=== PATIENT | female | born 1935 | race Caucasian/White ===

== ENCOUNTER → 2018-04-20 | Outpatient (CLI) | payer MEDICARE ==
[~2018-04-20] MED LIST: ACE3 PO; ACET500T68 PO; ALB6.7R INH; AMLO-101 PO; ATOR20TA65 PO; CALC500T6 PO; CELE-1 PO; CHOL200074 PO; CYAN100088 PO; CYAN25004 PO; IBAN150T3 PO; LACT1CAP6 PO; LOPE1LIQ49 PO; MELA1TAB23 PO; METH479P3 PO; MIRT-22 PO; MULT-27 PO; ONDA4TAB97 PO; PREG50CA48 PO; TRAM-627 PO; ZOLP-360 PO
--- NOTE | 2018-04-20 10:48 | RADIOLOGY IMAGING REPORT ---
FACILITY: [facility] - [place] PATIENT NAME: Patrice Alcazar : 1935 MR: [id number] V: [id number] EXAM DATE: ORDERING PHYSICIAN: SHIRA HORVATH TECHNOLOGIST: Location: [facility] Patient: Patrice Alcazar : 1935 Visit/Account:[id number] Date of Sevice: 04/20/2018 THORACIC SPINE 3 VIEWS, LUMBAR SPINE 4 VIEWS, CERVICAL SPINE MIN 4 VIEW Indication: Chronic pain, Comparison: C-spine MRI 12/16/2008 and MRI lumbar spine 04/30/2016 Findings: Cervical spine: There is significant multilevel degenerative disc space disease. Severe disc space narrowing is note d from C3-4 through C6-7 large anterior marginal osteophytes are noted from C4 through C6. There is effacement of the anterior prevertebral tissues secondary to the large osteophytes. There is a grade 1 retrolisthesis of C4 with respect to C3 and C5 measuring 3 mm. There is a mild grade 1 retrolisth esis of C5-6 measuring 3 mm. There is a mild anterolisthesis of C7-T1 measuring 5 mm. There is associated severe facet arthropathy noted at all levels. Thoracic spine: The vertebral body heights are well maintained. There is no acute osseous or acute alignment abnormality. Diffuse multilevel degenerative disc space disease is present. Disc space narrowing is noted. There is a moderate thoracolumbar scoliosis. Lumbar spine: There are 5 lumbar type vertebral bodies. There is no acute osseous or acute alignment abnormality. There is a moderate to severe dextro scoliotic curvature centered at L2-3. Severe diffuse multilevel degenerative disc space narrowing is noted at all levels. There is associated facet arthropathy. T his is greatest along the left-sided lesser curvature. The vertebral body heights appear well-maintained. IMPRESSION: 1. There is marked severe degenerative disc space disease present within the cervical spine which co rresponds to findings seen on MRI from 2008. Compared to the study, there has been no significant ch rafa. 2. Moderate diffuse multilevel degenerative disc space disease noted within the thoracic spine. 3. There is a moderate to severe dextro scoliotic curvature centered at L2-3. Severe diffuse multil evel degenerative disc space disease is noted as well as severe facet arthropathy. No acute abnormal ities noted Report Dictated By: Moncho Maguire at 04/20/2018 10:34 AM Report E-Signed By: Moncho Maguire at 04/20/2018 10:44 AM WSN:[email or web address]
--- NOTE | 2018-04-20 10:48 | RADIOLOGY IMAGING REPORT ---
[place] [facility] [place] NAME: Patrice Alcazar : 1935 MR: [id number] V: [id number] EXAM DATE: ORDERING PHYSICIAN: SHIRA HORVATH TECHNOLOGIST: Location: [facility] Patient: Patrice Alcazar : 1935 Visit/Account:[id number] Date of Sevice: 04/20/2018 THORACIC SPINE 3 VIEWS, LUMBAR SPINE 4 VIEWS, CERVICAL SPINE MIN 4 VIEW Indication: Chronic pain, Comparison: C-spine MRI 12/16/2008 and MRI lumbar spine 04/30/2016 Findings: Cervical spine: There is significant multilevel degenerative disc space disease. Severe disc space narrowing is note d from C3-4 through C6-7 large anterior marginal osteophytes are noted from C4 through C6. There is effacement of the anterior prevertebral tissues secondary to the large osteophytes. There is a grade 1 retrolisthesis of C4 with respect to C3 and C5 measuring 3 mm. There is a mild grade 1 retrolisth esis of C5-6 measuring 3 mm. There is a mild anterolisthesis of C7-T1 measuring 5 mm. There is associated severe facet arthropathy noted at all levels. Thoracic spine: The vertebral body heights are well maintained. There is no acute osseous or acute alignment abnormality. Diffuse multilevel degenerative disc space disease is present. Disc space narrowing is noted. There is a moderate thoracolumbar scoliosis. Lumbar spine: There are 5 lumbar type vertebral bodies. There is no acute osseous or acute alignment abnormality. There is a moderate to severe dextro scoliotic curvature centered at L2-3. Severe diffuse multilevel degenerative disc space narrowing is noted at all levels. There is associated facet arthropathy. T his is greatest along the left-sided lesser curvature. The vertebral body heights appear well-maintained. IMPRESSION: 1. There is marked severe degenerative disc space disease present within the cervical spine which co rresponds to findings seen on MRI from 2008. Compared to the study, there has been no significant ch rafa. 2. Moderate diffuse multilevel degenerative disc space disease noted within the thoracic spine. 3. There is a moderate to severe dextro scoliotic curvature centered at L2-3. Severe diffuse multil evel degenerative disc space disease is noted as well as severe facet arthropathy. No acute abnormal ities noted Report Dictated By: Moncho Maguire at 04/20/2018 10:34 AM Report E-Signed By: Moncho Maguire at 04/20/2018 10:44 AM WSN:[email or web address]
--- NOTE | 2018-04-20 10:49 | RADIOLOGY IMAGING REPORT ---
FACILITY: [facility] PATIENT NAME: Patrice Alcazar : 1935 MR: [id number] V: [id number] EXAM DATE: ORDERING PHYSICIAN: SHIRA HORVATH TECHNOLOGIST: Location: [facility] [place] Patient: Patrice Alcazar : 1935 Visit/Account:[id number] Date of Sevice: 04/20/2018 THORACIC SPINE 3 VIEWS, LUMBAR SPINE 4 VIEWS, CERVICAL SPINE MIN 4 VIEW Indication: Chronic pain, Comparison: C-spine MRI 12/16/2008 and MRI lumbar spine 04/30/2016 Findings: Cervical spine: There is significant multilevel degenerative disc space disease. Severe disc space narrowing is note d from C3-4 through C6-7 large anterior marginal osteophytes are noted from C4 through C6. There is effacement of the anterior prevertebral tissues secondary to the large osteophytes. There is a grade 1 retrolisthesis of C4 with respect to C3 and C5 measuring 3 mm. There is a mild grade 1 retrolisth esis of C5-6 measuring 3 mm. There is a mild anterolisthesis of C7-T1 measuring 5 mm. There is associated severe facet arthropathy noted at all levels. Thoracic spine: The vertebral body heights are well maintained. There is no acute osseous or acute alignment abnormality. Diffuse multilevel degenerative disc space disease is present. Disc space narrowing is noted. There is a moderate thoracolumbar scoliosis. Lumbar spine: There are 5 lumbar type vertebral bodies. There is no acute osseous or acute alignment abnormality. There is a moderate to severe dextro scoliotic curvature centered at L2-3. Severe diffuse multilevel degenerative disc space narrowing is noted at all levels. There is associated facet arthropathy. T his is greatest along the left-sided lesser curvature. The vertebral body heights appear well-maintained. IMPRESSION: 1. There is marked severe degenerative disc space disease present within the cervical spine which co rresponds to findings seen on MRI from 2008. Compared to the study, there has been no significant ch rafa. 2. Moderate diffuse multilevel degenerative disc space disease noted within the thoracic spine. 3. There is a moderate to severe dextro scoliotic curvature centered at L2-3. Severe diffuse multil evel degenerative disc space disease is noted as well as severe facet arthropathy. No acute abnormal ities noted Report Dictated By: Moncho Maguire at 04/20/2018 10:34 AM Report E-Signed By: Moncho Maguire at 04/20/2018 10:44 AM WSN:[email or web address]
--- NOTE | 2018-04-20 13:20 | RADIOLOGY IMAGING REPORT ---
FACILITY: [facility] PATIENT NAME: Patrice Alcazar : 1935 MR: [id number] V: [id number] EXAM DATE: ORDERING PHYSICIAN: SHIRA HORVATH TECHNOLOGIST: [place] [facility] [place] Alc[place] : 1935 Visit/Account:[id number] Date of Sevice: 04/20/2018 CHEST PA AND LAT Additional pertinent History: Chronic cough COMPARISON STUDIES: 06/29/2016 FINDINGS: Support lines and catheters: None Lungs and Pleura: Lung galindo well expanded with no infiltrates or consolidations. No parenchymal ma ss lesions are seen. There are no effusions Heart and vasculature: Negative. Santa and Mediastinum: Negative. Bones and Chest wall: Prominent dextroscoliotic curvature centered at the L1 level. Upper Abdomen: Negative. IMPRESSION: 1. Negative chest for acute cardiopulmonary disease. No interval change when compared to the previo us study. Report Dictated By: Javier Donald MD at 04/20/2018 1:14 PM Report E-Signed By: Javier Donald MD at 04/20/2018 1:16 PM WSN:[email or web address]
== END ==
LOC: RAD 09:25
PROVIDERS: ATTEND Nurse Practitioner Family
DX: M81.0 Age-related osteoporosis without current pathological fracture (principal); M41.86 Other forms of scoliosis, lumbar region; R05 Cough
CPT/HCPCS: 71046; 72050; 72072; 72120

== ENCOUNTER → 2018-05-19 | Outpatient (CLI) | payer MEDICARE ==
[~2018-05-19] MED LIST changes: +REGADENOSON 0.4 MG/5 ML SYR ONE
--- NOTE | 2018-05-19 14:40 | RADIOLOGY IMAGING REPORT ---
FACILITY: [facility] [place] PATIENT NAME: Patrice Alcazar : 1935 MR: [id number] V: [id number] EXAM DATE: ORDERING PHYSICIAN: SHIRA HORVATH TECHNOLOGIST: Location: [facility] Patient: Patrice Alcazar : 1935 Visit/Account:[id number] Date of Sevice: 05/19/2018 REGADENOSON (LEXISCAN) MYOCARDIAL PERFUSION IMAGING. EXAMINATION: Single isotope SPECT imaging with regadenoson infusion and gated SPECT imaging. DATE OF EXAMINATION: May 19, 2018. REQUESTING PHYSICIAN:YULIET INDICATION: Hypertension shortness of breath fatigue PROCEDURE: After informed consent the patient received an intravenous injection of Tc-99m sestamibi followed at an appropriate time interval by rest imaging. The patient then subsequently received an intravenous infusion of 0.4 mg of regadenoson per protocol without complication. Resting heart rate was 80 bpm with a peak heart rate of 111 bpm. Blood pressure at rest was 163/78 and following infus ion was 176/65 . Baseline EKG demonstrates sinus rhythm. There were no EKG changes of ischemia foll owing infusion. Non-specific symptoms were reported. The patient then received an intravenous injec tion of Tc-99m sestamibi followed by stress imaging. DOSE of Tc-99m sestamibi (mCi): REST: 12.7 STRESS: 29.9 RAW DATA: Examination of the summed raw data revealed a excellent quality study. MYOCARDIAL PERFUSION: The tomographic images demonstrate normal myocardial perfusion study without e vidence of myocardial ischemia or infarct. GATED IMAGES: The gated images demonstrate normal LV systolic performance and wall motion with LVEF greater than 80% IMPRESSION: 1. Nondiagnostic ECG portion of Lexiscan stress test. 2. Normal myocardial perfusion study without evidence of myocardial ischemia or infarct 3. Normal LV systolic performance and wall motion with LVEF greater than 80% Report Dictated By: Alessandro Diego at 05/19/2018 2:31 PM Report E-Signed By: Alessandro Diego at 05/19/2018 2:36 PM WSN:[id number]
--- NOTE | 2018-05-20 12:34 | RT STRESS TEST REPORT ---
FACILITY: [facility] PATIENT NAME: DEEPTI COLLAZO : [id number] MR: [id number] V: [id number] EXAM DATE: ORDERING PHYSICIAN: SHIRA HORVATH TECHNOLOGIST: Yajaira Acquisition Time: 2018-05-19 09:33:43 Total Exercise Time: 00:01:00 Test Indications: SOB Medications: SEE NUCLEAR MED SHEET Protocol: LEXISCAN Max HR: 111 BPM 81% of Pred: 136 BPM Max BP: 176/065 mmHG Max Work Load: 1.0 METS Impression Negative EKG part of Lexiscan, nuclear medicine to follow Confirmed by VANESSA KHANNA ([id number]) on 05/20/2018 12:33:28 PM Referred By: Overread By: VANESSA KHANNA
== END ==
LOC: NUC 01:11
PROVIDERS: ATTEND Nurse Practitioner Family
DX: I10 Essential (primary) hypertension (principal); R53.81 Other malaise; R06.00 Dyspnea, unspecified
CPT/HCPCS: 78452; 93017; A9500; J2785

== ENCOUNTER → 2019-01-22 | Outpatient (CLI) | payer MEDICARE ==
[~2019-01-22] MED LIST changes: +ATOR20TA22 PO; -REGADENOSON 0.4 MG/5 ML SYR ONE
--- NOTE | 2019-01-22 15:31 | RADIOLOGY IMAGING REPORT ---
FACILITY: [facility] - [place] PATIENT NAME: Patrice Alcazar : 1935 MR: [id number] V: [id number] EXAM DATE: ORDERING PHYSICIAN: CHIN BARNETT TECHNOLOGIST: Location: [facility] [place] Patient: Patrice Alcazar : 1935 Visit/Account:[id number] Date of Sevice: 01/22/2019 PELVIC LTD OR F/U HISTORY: History of left ovarian cyst TECHNIQUE: Transabdominal ultrasound pelvis. Patient age COMPARISON: The report from a pelvic ultrasound from July 14, 2016 is available however the actu al images are not FINDINGS: Uterus: Not imaged Myometrium: Not imaged. Endometrium: Not imaged; double thickness mm. Cervix: Not imaged. 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 The thickest septation measures 4.8 mm in thickness. The measurements of the septated cystic mass slightly decreased when compared to the reported measurements on the prior study Adnexa: Not imaged. Free pelvic fluid: None. IMPRESSION: A limited pelvic ultrasound was performed evaluating the left ovary only demonstrating a 5 x 4.2 x 4. 6 cm septated cystic mass. The report from the prior pelvic ultrasound of July 22, 2016 is avail able however the images are not. This mass appears slightly decreased in size when compared to the r eported measurements Report Dictated By: aKy Brian MD at 01/22/2019 2:59 PM Report E-Signed By: Kay Brian MD at 01/22/2019 3:27 PM WSN:[email or web address]
--- NOTE | 2019-01-22 15:59 | RADIOLOGY IMAGING REPORT ---
FACILITY: [facility] PATIENT NAME: Patrice Alcazar : 1935 MR: [id number] V: [id number] EXAM DATE: ORDERING PHYSICIAN: CHIN BARNETT TECHNOLOGIST: [place] [facility] [place]: Patrice Alcazar : 1935 Visit/Account:[id number] Date of Sevice: 01/22/2019 US ABD LIMITED ULTRASOUND INDICATION: Left lower quadrant pain with exertion. COMPARISON: CT abdomen and pelvis dated 07/16/2016. FINDINGS: Grayscale and color Doppler ultrasound of the anterior abdominal wall and the left lower quadrant and . Umbilical regions. Tiny fat-containing umbilical hernia, better seen on the prior CT of the abdomen and pelvis. No left lower quadrant hernia. Otherwise no suspicious mass or fluid collection. IMPRESSION: Tiny fat-containing umbilical hernia, better seen on the prior CT. Report Dictated By: Narciso Mayer MD at 01/22/2019 3:44 PM Report E-Signed By: Narciso Mayer MD at 01/22/2019 3:54 PM WSN:[id number]
== END ==
LOC: US 12:56
PROVIDERS: ATTEND Obstetrics & Gynecology
DX: R19.00 Intra-abdominal and pelvic swelling, mass and lump, unspecified site (principal); K46.9 Unspecified abdominal hernia without obstruction or gangrene
CPT/HCPCS: 76705; 76857